=== PATIENT | male | born 1965 | race Two or more races ===

== ENCOUNTER 2019-03-01 20:17 | Emergency (ER) | payer OTHER ==
[~2019-03-01] VITALS: Ht 167.6 cm; Wt 65.8 kg
--- NOTE | 2019-03-01 21:56 | NUR ---
TO BED 3 AMBULATORY C/O RUQ ABDOMINAL PAIN WITH N/V SINCE YESTERDAY. PT AAOX4 NO ACUTE DISTRESS NOTED, RESP EVEN AND UNLABORED. ER MD AT BEDSIDE TO EVAL PT WITH ORDERS RECIEVED. WILL CARRY OUT ORDERS. URINE SAMPLE COLLECTED AND SENT TO LAB.
[2019-03-01 22:15] LABS: BASOPHILS # (AUTO) 0.1 /CMM (0.0-0.2); BASOPHILS % (AUTO) 0.4 % (0.0-2.0); HEMATOCRIT 47 % (39-51); HEMOGLOBIN 15.7 g/dL (13.5-17.5); LYMPHOCYTES # (AUTO) 0.9 /CMM (0.8-4.8); LYMPHOCYTES % (AUTO) 7.1 % (20.0-44.0); MEAN CORPUSCULAR HGB CONC 34 g/dl (31.0-36.0); MEAN CORPUSCULAR VOLUME 90 fL (80-96); MONOCYTES # (AUTO) 0.6 /CMM (0.1-1.30); MONOCYTES % (AUTO) 5.3 % (2.0-12.0); NEUTROPHILS # (AUTO) 10.5 /CMM (1.8-8.9); NEUTROPHILS % (AUTO) 87.2 % (43.0-81.0); PLATELET COUNT (AUTO) 278 /CMM (150-450); RED BLOOD CELL COUNT(AUTO) 5.19 MIL/uL (4.5-6.0); WHITE BLOOD COUNT (AUTO) 12.1 K/uL (4.3-11.0)
[2019-03-01 22:26] LABS: CALCIUM, SERUM 9.3 mg/dL (8.5-10.1); CARBON DIOXIDE 23 mmol/L (21-32); CHLORIDE 105 mmol/L (98-107); GLUCOSE 150 mg/dL (74-106); SODIUM SERUM 141 mmol/L (136-145); UREA NITROGEN, BLOOD 23 mg/dL (7-18)
[2019-03-01] MEDS ORDERED: HYDROMORPHONE 1 MG/1 ML DISP.SYRIN ONE (22:27)
[2019-03-01] MEDS ORDERED: KETOROLAC TROMETHAMINE 15 MG/ML VIAL ONE (22:27)
[2019-03-01] MEDS ORDERED: ONDANSETRON HCL/PF 4 MG/2 ML VIAL ONE (22:27)
[2019-03-01] MEDS ORDERED: HYDROMORPHONE INJ 2 MG/ML DISP.SYRIN IV ONE (22:30)
[2019-03-01] MEDS ORDERED: KETOROLAC TROMETHAMINE INJ 30 MG/ML VIAL IV ONE (22:30)
[2019-03-01] MEDS ORDERED: ONDANSETRON HCL/PF 4 MG/2 ML VIAL IVP ONE (22:30)
[2019-03-01 22:32] LABS: ALANINE AMINOTRANSFERASE 37 U/L (12-78); ALBUMIN 4.6 g/dL (3.4-5.0); ALKALINE PHOSPHATASE 64 U/L (46-116); ASPARTATE AMINOTRANSFERASE 32 U/L (15-37); BILIRUBIN,DIRECT 0.1 mg/dL (0.0-0.2); BILIRUBIN,TOTAL 0.8 mg/dL (0.2-1.0); LIPASE 64 U/L (73-393); POTASSIUM 3.7 mmol/L (3.5-5.1); TOTAL PROTEIN, SERUM 8.2 g/dL (6.4-8.2)
--- NOTE | 2019-03-01 22:39 | NUR ---
PT ,EDICATED BY RN PER ER MD ORDER.
[2019-03-01] MEDS ORDERED: IOHEXOL-300 100 ML VIAL IV ONE (23:09)
[2019-03-01] MEDS ORDERED: IV NS 0.9% 250 ML IV ONE (23:09)
[2019-03-01] MEDS ORDERED: CT SWABBABLE VALVE TRANS SET 1 EA INFUS.SET MC ONE (23:10)
--- NOTE | 2019-03-01 23:18 | NUR ---
PT BACK FROM RADIOLOGY. PENDING CT ABD/PELVIS RESULT.
[2019-03-02] MEDS ORDERED: HYDROMORPHONE 1 MG/1 ML DISP.SYRIN IV ONE (00:30)
[2019-03-02] MEDS ORDERED: HYDROMORPHONE 1 MG/1 ML DISP.SYRIN ONE (01:32)
--- NOTE | 2019-03-02 02:32 | NUR ---
Pt accepted by Dr Abdi at [facility]. Room 2262, # for report [phone]
--- NOTE | 2019-03-02 02:44 | NUR ---
CALLED [facility] [phone] FOR S TRANSPORT ETA 60 MINS ([id number]) TRIP NUMBER [id number]
--- NOTE | 2019-03-02 02:50 | NUR ---
REPORT CALLED TO [facility]. AWAITING TRANSPORT.
--- NOTE | 2019-03-02 03:33 | NUR ---
TRANSPORT AT BEDSIDE REPORT GIVEN TO EMT.
[2019-03-02 03:34] VITALS: BP 102/67
== END 2019-03-02 03:38 | disposition short-term general hospital (02) ==
LOC: ER 20:17
DX: K56.699 Other intestinal obstruction unspecified as to partial versus complete obstruction (principal)
CPT/HCPCS: 36415; 71045; 74177; 76700; 80048; 80076; 83690; 84484; 85025; 85730; 87081; 93005; 96374; 96375; 96376; 99285; J1170 ×2; J1885; J2405; J7050; Q9967

== ENCOUNTER 2020-05-18 16:41 | Emergency (ER) | payer OTHER ==
[~2020-05-18] VITALS: Ht 167.6 cm; Wt 65.3 kg
[2020-05-18] MEDS ORDERED: ASPIRIN 325 MG TABLET PO ONE (17:00)
[2020-05-18] MEDS ORDERED: NITROGLYCERIN 0.4 MG/TAB BOTTLE SL ONE (17:00)
[2020-05-18] MEDS ORDERED: ASPIRIN 325 MG TABLET ONE (17:11)
[2020-05-18] MEDS ORDERED: NITROGLYCERIN 0.4 MG/TAB BOTTLE ONE (17:11)
[2020-05-18 17:13] LABS: BASOPHILS % (AUTO) 0.5 % (0.0-2.0); EOSINOPHILS % (AUTO) 0.9 % (0.0-6.0); HEMATOCRIT 46 % (39-51); HEMOGLOBIN 15.3 g/dL (13.5-17.5); LYMPHOCYTES # (AUTO) 1.8 /CMM (0.8-4.8); LYMPHOCYTES % (AUTO) 24.8 % (20.0-44.0); MEAN CORPUSCULAR HGB CONC 33 g/dl (31.0-36.0); MEAN CORPUSCULAR VOLUME 92 fL (80-96); MONOCYTES # (AUTO) 0.8 /CMM (0.1-1.30); MONOCYTES % (AUTO) 10.3 % (2.0-12.0); NEUTROPHILS # (AUTO) 4.7 /CMM (1.8-8.9); NEUTROPHILS % (AUTO) 63.5 % (43.0-81.0); PLATELET COUNT (AUTO) 206 /CMM (150-450); RED BLOOD CELL COUNT(AUTO) 4.97 MIL/uL (4.5-6.0); WHITE BLOOD COUNT (AUTO) 7.5 K/uL (4.3-11.0)
--- NOTE | 2020-05-18 17:19 | NUR ---
Patient awake alert C/C chest pain 05/23 music teacher @ bedside Jayda Cruz CNA ,Dr. Gomez @ bedside with orders
[2020-05-18 17:29] LABS: CALCIUM, SERUM 8.3 mg/dL (8.5-10.1); CARBON DIOXIDE 27 mmol/L (21-32); CHLORIDE 104 mmol/L (98-107); CREATININE 0.9 mg/dL (0.6-1.3); GLUCOSE 88 mg/dL (74-106); POTASSIUM 3.8 mmol/L (3.5-5.1); SODIUM SERUM 138 mmol/L (136-145); UREA NITROGEN, BLOOD 15 mg/dL (7-18)
[2020-05-18 17:31] LABS: MAGNESIUM 2.2 mg/dL (1.8-2.4)
--- NOTE | 2020-05-18 17:35 | NUR ---
Patient pain level 4/10 chest pain patient stated much better .
[2020-05-18 18:19] VITALS: BP 123/78
--- NOTE | 2020-05-18 18:20 | NUR ---
DR. 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
--- NOTE | 2020-05-18 18:36 | NUR ---
Patient DC home instruction given agrees to call PMD in 2 adys .
--- NOTE | 2020-05-18 18:37 | NUR ---
I removed heplock RAC noted cath intact no edema no pain
[2020-05-18 18:52] LABS: THYROID STIMULATING HORMONE 1.417 uIU/mL (0.358-3.74)
== END 2020-05-18 18:39 | disposition home or self-care (01) ==
LOC: ER 16:48
DX: R07.89 Other chest pain (principal); R00.2 Palpitations; R06.02 Shortness of breath
CPT/HCPCS: 36415; 71045; 80048; 83735; 84439; 84443; 84484; 85025; 85378; 93005 ×3; 99285; J7030